=== PATIENT | male | born 1960 | race Caucasian/White ===

== ENCOUNTER 2024-08-19 18:54 | Observation (INO) | payer BC ==
[~2024-08-19] VITALS: Ht 185.4 cm; Wt 124.8 kg
[~2024-08-19 18:54] MED LIST: CYCL10 PO; LACT10SY PO; NAPR550 PO; OXYACE5T PO
[2024-08-19] MEDS ORDERED: NS 1,000 ML IV SCH (19:35)
[2024-08-19 20:03] LABS: Hematocrit 41.1 % (37.0-53.0); Mean Corpuscular HGB 31.3 pg (26.0-34.0); Mean Corpuscular HGB Conc 34.1 g/dL (31.5-36.5); Mean Corpuscular Volume 92 fL (80-100); Mean Platelet Volume 9.8 fL (9.1-12.4); Platelet Count 146 K/mm3 (150-400); RDW Coefficient Variation 13.1 % (11.7-14.2); Red Blood Cell Count 4.48 M/mm3 (4.30-5.90); White Blood Cell Count 4.57 K/mm3 (4.00-11.30)
[2024-08-19 20:05] LABS: Albumin, Blood 3.4 g/dL (3.4-5.0); Bilirubin, Total 1.6 mg/dL (0.1-1.0); Bun/Creatinine Ratio 13.7 (12.0-20.0); Calcium, Blood 8.5 mg/dL (8.5-10.1); Creatinine, Blood 1.02 mg/dL (0.60-1.20); Globulin, Blood 3.4 g/dL (2.2-4.0); Potassium, Blood 4.3 mmol/L (3.5-5.5); Total Protein, Blood 6.8 g/dL (6.4-8.2)
[2024-08-19] MEDS ORDERED: Ketorolac Tromethamine 15mg Vial IV ONE (20:05)
[2024-08-19] MEDS ORDERED: Ondansetron HCl 2 MG / ML 2ML Vial IV ONE (20:05)
[2024-08-19 20:55] LABS: BAND PERCENT MAN 30 % (0-8); BASOPHILS PERCENT MAN 0 % (0-2); EOSINOPHILS PERCENT MAN 0 % (0-6); LYMPHOCYTES ABSOLUTE MAN 0.27 K/mm3 (0.84-5.20); LYMPHOCYTES PERCENT MAN 6 % (21-46); METAMYELOCYTE ABSOLUTE MAN 0.04 K/mm3 (0.00-0.00); METAMYELOCYTE PERCENT MAN 1 % (0-0); MONOCYTES PERCENT MAN 0 % (4-13); NEUTROPHILS ABSOLUTE MAN 4.25 K/mm3 (1.96-9.15); SEG NEUTROPHILS PERCENT MAN 63 % (41-73); TOTAL CELLS COUNTED 100
[2024-08-19] MEDS ORDERED: Piperacillin/Tazobactam Sod 4.5 GM in NS 100 ML IV ONE (22:35)
[2024-08-19] MEDS ORDERED: Acetaminophen 325 MG TABLET PO PRN (22:50)
[2024-08-19] MEDS ORDERED: Morphine Sulfate 4 MG/1 ML Injection IV PRN (22:50)
[2024-08-19] MEDS ORDERED: FLU VACC TS2024-25(6MOS UP)/PF 45 MCG/0.5 ML SYRINGE IM ONE (22:50)
[2024-08-19] MEDS ORDERED: OxyCODONE HCL 5 MG TAB PO PRN (22:50)
[2024-08-19] MEDS ORDERED: Ondansetron HCl 2 MG / ML 2ML Vial IV PRN (22:50)
[2024-08-19] MEDS ORDERED: Lactated Ringer's 1,000 ML IV SCH (23:00)
[2024-08-19 23:40] LABS: Source, Urine Clean Catch
[2024-08-19 23:53] LABS: Bilirubin, Urine Neg (Neg); Blood, Urine Neg (Neg); Glucose Qualitative, Urine Neg (Neg); Ketones, Urine 1+ (Neg); Leukocyte Esterase, Urine Neg (Neg); Nitrite, Urine Neg (Neg); Protein, Urine 1+ (Neg); Urobilinogen, Urine NORM (Normal); pH, Urine 6.5 (5.0-8.0)
[2024-08-20] VITALS (32 sets, daily range): BP systolic 83–129; BP diastolic 57–96
[2024-08-20 00:10] LABS: Appearance, Urine Clear (Clear); Color, Urine Yellow (P-Yellow)
[2024-08-20] MEDS ORDERED: ROSUVASTATIN CA20 MG PO (00:14)
[2024-08-20] MEDS ORDERED: NS 250 ML IV PRN (00:45)
[2024-08-20] MEDS ORDERED: SILDENAFIL CITR50 MG PO (00:56)
--- NOTE | 2024-08-20 04:31 | NUR ---
SHIFT SUMMARY PT ER ADMIT THIS SHIFT FOR ACUTE APPY WITH PLANS FOR SURGERY TODAY. PT DENIES NEEDS WHEN ASKED. PT HAS HAD NO N/V. PT HAS BEEN NPO. VITALS ARE STABLE. IVF INFUSING. PT INDEPENDENT IN THE ROOM. BED IN LOWEST POSITION, CALL LIGHT WITHIN REACH.
[2024-08-20 04:33] LABS: BASOPHILS ABSOLUTE AUTO 0.03 K/mm3 (0.00-0.23); BASOPHILS PERCENT AUTO 0 % (0-2); EOSINOPHILS ABSOLUTE AUTO 0.01 K/mm3 (0.00-0.68); EOSINOPHILS PERCENT AUTO 0 % (0-6); Hematocrit 38.9 % (37.0-53.0); Hemoglobin 13.3 g/dL (13.5-17.5); IMMATURE GRAN ABSOLUTE AUTO 0.04 K/mm3 (0.00-0.10); IMMATURE GRAN PERCENT AUTO 0 % (0-1); LYMPHOCYTES ABSOLUTE AUTO 0.47 K/mm3 (0.84-5.20); LYMPHOCYTES PERCENT AUTO 5 % (21-46); MONOCYTES ABSOLUTE AUTO 0.45 K/mm3 (0.16-1.47); MONOCYTES PERCENT AUTO 5 % (4-13); Mean Corpuscular HGB 31.4 pg (26.0-34.0); Mean Corpuscular HGB Conc 34.2 g/dL (31.5-36.5); Mean Corpuscular Volume 92 fL (80-100); Mean Platelet Volume 10.3 fL (9.1-12.4); NEUTROPHILS PERCENT AUTO 90 % (41-73); Platelet Count 128 K/mm3 (150-400); RDW Coefficient Variation 13.4 % (11.7-14.2); RDW Standard Deviation 45.6 fL (35.1-46.3); Red Blood Cell Count 4.23 M/mm3 (4.30-5.90)
[2024-08-20 04:57] LABS: Albumin/Globulin Ratio 0.9 (0.8-1.8); Bilirubin, Total 1.4 mg/dL (0.1-1.0); Bun/Creatinine Ratio 14.3 (12.0-20.0); Calcium, Blood 7.8 mg/dL (8.5-10.1); Creatinine, Blood 1.05 mg/dL (0.60-1.20); Globulin, Blood 3.2 g/dL (2.2-4.0); Magnesium, Blood 1.7 mg/dL (1.6-2.4); Total Protein, Blood 6.2 g/dL (6.4-8.2)
[2024-08-20] MEDS ORDERED: Piperacillin/Tazobactam Sod 3.375 GM in NS 100 ML IV SCH (06:00)
[2024-08-20] MEDS ORDERED: Docusate Sodium 100 MG Cap PO SCH (09:00)
[2024-08-20] MEDS ORDERED: Lactobacil 2-S.Thermo-Bifido 1 1 Cap PO SCH (09:00)
[2024-08-20] MEDS ORDERED: Lactated Ringer's 1,000 ML IV SCH ×2 (10:50→15:45)
[2024-08-20] MEDS ORDERED: Bupivacaine 0.5% HCl 5 MG/ML 30MLVIAL ONE (11:34)
[2024-08-20] MEDS ORDERED: Ondansetron HCl 2 MG / ML 2ML Vial ONE (12:11)
[2024-08-20] MEDS ORDERED: Labetalol HCL 5 MG/ML 4ML Injection (Single Dose) ONE (12:11)
--- NOTE | 2024-08-20 12:11 | NUR ---
PT TO OR.
[2024-08-20] MEDS ORDERED: FentaNYL Citrate 50 MCG/ML 2 ML Injection ONE ×2 (12:17→16:37)
[2024-08-20] MEDS ORDERED: Diltiazem HCl 5 MG / ML 10ML Vial IV ONE (12:20)
[2024-08-20] MEDS ORDERED: Diltiazem HCl 5 MG / ML 5ML Vial IV ONE (12:25)
[2024-08-20] MEDS ORDERED: FentaNYL Citrate 50 MCG/ML 2 ML Injection IV ONE (12:30)
[2024-08-20] MEDS ORDERED: Metoprolol Succinate 25 MG TABCR PO SCH (13:00)
--- NOTE | 2024-08-20 13:17 | NUR ---
1157 PT BROUGHT DOWN TO PRE-OP VIA [facility] FOR SURGERY. WHEN VITAL SIGNS BEING TAKEN, NOTICE HR 150-160'S. PT DENIES NO CHEST PAIN OR SOB. STAT EKG DONE, SHOWED A-FIB WITH RVR WITH RATE 156. ANESTHIOLOGIST CAN AT BEDSIDE. EVALUATED PT AND WILL GIVE LABETOLOL 20MG IV FOR RATE CONTROL. DR ELLIOTT AT BEDSIDE AND INFORMED PATIENT THAT SURGERY WILL BE CANCELLED UNTIL STABLE. PT C/O NAUSEA AND PAIN TO RLQ AREA. PER ANESTHESIA, GIVE FENTANYL 100MCG IV AND MEDICATE FOR NAUSEA WITH ZOFRAN IV. DECREASE SATS FROM 95% TO 91% S/P PAIN MED. RESTING COMFORTABLE. 02 3L/NC PLACED. ADD'L ORDERS TO START CARDIZEM BOLUS/GTT PER ANESTHESIA. CALLED HOSPITALIST, DR LAMB TO CONFIRM TRANSFER TO PCU AND TO START CARDIZEM GTT. NEW ORDERS PER DR LAMB. 1239 CARDIZEM BOLUS GIVEN 1245 CARDIZEM GTT STARTED 1248 NOTED HR DECREASD TO 50'S, CONVERTED TO NSR 60'S. BP STABLE. TRANSFER TO PCU 17 VIA [facility]. 1306 REPORTED OFF TO PAMELA EDUARDO RN.
--- NOTE | 2024-08-20 13:30 | NUR ---
TRANSFER: PT TRANSFER TO ROOM PCU 17 FROM DAY SURGERY FOR NEW ONSET AFIB WITH RVR. PT CONVERTED TO NSR AT 1248. PT ASYMPTOMATIC. HR IN THE 70'S. PLACED ON MONITOR. COMPLETED 1L OF FLUIDS INFUSED IN DAY SURGERY. ABX COMPLETE. PT DENIES PAIN AND NAUSEA AT THIS TIME. REMAINS NPO. PLAN FOR ECHO TODAY FOR SURGERY CLEARENCE. WILL PASS CARE TO [facility].
--- NOTE | 2024-08-20 14:23 | NUR ---
ECHOCARDIOGRAM CURRENTLY BEING DONE AT BEDSIDE PER [facility].
--- NOTE | 2024-08-20 16:05 | NUR ---
PT TO DAY SURGERY AT THIS TIME
--- NOTE | 2024-08-20 16:10 | NUR ---
PT RECENTLY TO [facility], PRESENT. History, Chart, Medications and Allergies reviewed before start of procedure. Patient confirms NPO status and agrees with scheduled surgery. Pre-Op teaching done. Pt verbalizes understanding. Lungs clear T/O to Auscultation.
[2024-08-20] MEDS ORDERED: Lidocaine HCl 2% 20 ML MDV ONE (16:37)
[2024-08-20] MEDS ORDERED: propofoL 20 ML IV ONE (16:38)
[2024-08-20] MEDS ORDERED: Etomidate 2MG / ML 10ML Vial ONE (16:39)
[2024-08-20] MEDS ORDERED: Metoprolol Tartrate 5 ML IV ONE (16:39)
[2024-08-20 17:08] LABS: Albumin, Blood 2.8 g/dL (3.4-5.0); Albumin/Globulin Ratio 0.9 (0.8-1.8); Bilirubin, Total 1.4 mg/dL (0.1-1.0); Bun/Creatinine Ratio 14.6 (12.0-20.0); Calcium, Blood 8.1 mg/dL (8.5-10.1); Creatinine, Blood 1.03 mg/dL (0.60-1.20); Globulin, Blood 3.2 g/dL (2.2-4.0); Potassium, Blood 3.8 mmol/L (3.5-5.5)
[2024-08-20] MEDS ORDERED: Sugammadex Sodium 200 MG/2ML SDV (100 MG/ML) ONE (17:29)
[2024-08-20] MEDS ORDERED: Ketorolac Tromethamine 30mg Vial ONE (17:38)
[2024-08-20] MEDS ORDERED: Rocuronium Bromide 10 MG/ML 5ML Injection IV ONE (17:44)
[2024-08-20] MEDS ORDERED: HYDROcodone 5-APAP 325 TAB PO PRN (18:15)
--- NOTE | 2024-08-20 18:32 | NUR ---
POST OP S/P LAP APPY. PT ABLE TO STAND AND TRANSFER FROM GURNEY TO BED. X3 LAP SITES TO ABD WITH GAUZE + TEGADERM ARE CDI. PT DENIES PAIN. TOLERATING SIPS OF WATER. ENCOURAGING DEEP BREATHING AND AND I/S AT BEDSIDE. ON 2L O2 VIA NC AND PLANNING TO WEAN TOLERATED. CARDIZEM DRIP DECREASED FROM 10 TO 5 FOR HYPOTENSION PER ENGINE SPECIALIST. IV ABX INFUSING PER ORDERS. POST OP VS IN PROGRESS. FAMILY AT BEDSIDE FOR SUPPORT. CALL LIGHT WITHIN REACH.
--- NOTE | 2024-08-20 20:00 | NUR ---
ASSUMED CARE OF PT AT 1900. REPORT RECEIVED. PT PRESENTS IN BED. ALERT AND ORIENTED. DENIES ANY ABDOMINAL PAIN. NO COMPLAINTS OF NAUSEA. LAP DRESSINGS TO ABDOMEN CDI. TEACHING DONE ON ABDOMINAL SPLINTING. TEACHING OF IMPORTANCE IN COUGH AND DEEP BREATHE. REINFORCED TEACHING ON INCENTIVE SPIROMETRY. PT VERBALIZES UNDERSTANDING. WILL REVIEW CHART AND PLAN OF CARE FOR THIS PT.
[2024-08-21] VITALS: BP 103/68
[2024-08-21 04:00] VITALS: BP 107/76
--- NOTE | 2024-08-21 05:39 | NUR ---
PT HAS BEEN ABLE TO GET UP IN ROOM AND AMBULATE TO BATHROOM. VOIDS WELL. HAS NOT PASSED ANY FLATUS AT THIS TIME. FAMILY ROOMS IN FOR THE NIGHT. CARDIAC RHYTHM REMAINS IN SINUS RHYTHM. NO COMPLAINTS OF CHEST PAIN OR PRESSURE. DRESSINGS (GAUZE) OVER LAP SITES REMAIN CDI. HAVE MEDICATED PT ONLY ONCE FOR ABDOMINAL PAIN. HE HAS DENIED FURTHER NEED FOR PAIN MEDICATIONS. WILL CONTINUE TO MONITOR PT, AND WILL REPORT OFF TO ONOMING RN.
[2024-08-21 07:48] VITALS: BP 130/89
--- NOTE | 2024-08-21 11:12 | NUR ---
ASSUMPTION OF CARE PT ALERT AND ORIENTED, HE IS CALM, COOPERATIVE TO CARE. SKIN INTACT, NO BREAKDOWN NOTED, 3 SMALL ABDOMINAL INCISION, S/P LAP APPENDECTOMY, DRESSING INTACT, NO BLEEDING, DRAINAGE, OR REDNESS NOTED, PAIN 5/10, MEDICATING PER EMAR, +BS, PT DENIES HAVING A BM SINCE SURERY, COLACE ORDERED. RIGHT PIV S/L. HR 60'S, NSR, DENIES CP/PRESSURE, NUMB/TINGLING, SBP STABLE. >93% ON RA, DENIES SOB. AWAITING SURGEON TO ROUND ON PATIENT, WILL CONTINUE TO MONITOR PT.
[2024-08-21 11:25] VITALS: BP 129/82
--- NOTE | 2024-08-21 11:43 | NUR ---
Pt. is awake in bed when he welcomes my visit. Spouse and son are at bedside. Facilitate a life review and begin to establish rapport. Pt. displays evidence of having solid support. Prayed with the Pt. as I took his hand. Both Pt. and family verbalized gratitude for the spiritual care visit.
[2024-08-21] MEDS ORDERED: HYDROCODONE-AC1 EA15 PO (14:26)
--- NOTE | 2024-08-21 15:17 | NUR ---
DISCHARGE SUMMARY PT ALERT AND ORIENTED, COOPERATIVE TO CARE, REMAINS IN NSR, HR IN THE 60'S, DENIES CP/PRESSURE. +BS IN ALL QUADRENTS, DENIES PAIN AT THIS TIME. NO ACUTE CHANGES THROUGHOUT SHIFT. PROVIDER TO BEDSIDE TO DISCUSS PLAN OF CARE, PT TO F/U WITH PCP, AND DR ELLIOTT, APPT SCHEDULED FOR PT. PT AGREEABLE TO PLAN. LEFT PIV REMOVED, PRESSURE APPLIED TO SITE, DRESSED WITH COBAN AND GUAZE, PT TOLERATED WELL WITH NO COMPLICATIONS, PT AGREED TO REMOVE COBAN IN 15-20 MINUTES. DISCHARGE INSTURUCTIONS REVIEWED WITH PT, PT TO NOT LIFT, PULL OR STRAIN FOR A COUPLE WEEKS, NO SUBMERGING INCISION SITE, SIGNS OF INFEECTION TO REPORT, AND TO NOT OPERATIVE VEHICLES WHILE TAKING PAIN MEDICATION. PT HAD NO QUESTIONS OR CONCERNS AT THIS TIME. PT LEFT VIA WHEELCHAIR WITH PCT AT 1447.
== END 2024-08-21 14:49 | disposition home or self-care (01) ==
LOC: ER 18:54 → SURS 18:55 → PCU 08-20 12:27
PROVIDERS: Nurse Anesthetist, Certified Registered; Student in an Organized Health Care Education/Training Program; Surgery; ADMIT Student in an Organized Health Care Education/Training Program
PROC: 0DTJ4ZZ Resection of Appendix, Percutaneous Endoscopic Approach (ICD-10-PCS; principal; 2024-08-20 14:30)
DX: K35.80 Unspecified acute appendicitis (principal); I10 Essential (primary) hypertension; I48.91 Unspecified atrial fibrillation; E78.5 Hyperlipidemia, unspecified; Z79.899 Other long term (current) drug therapy; Z98.52 Vasectomy status
CPT/HCPCS: 36415; 74177; 80053; 82947; 83605; 83690; 83735; 84443; 84484; 85025; 87086; 88304; 93005; 93010; 93306; 94762; 96365-59; 96366; 96375; 96376; 99285-25; A9270; G0378; J1885; J2270; J2405; J2543; J2704; J3010; J7030; J7050; J7120; Q9967